=== PATIENT | male | born 1960 | race Caucasian/White ===

== ENCOUNTER 2022-07-11 18:25 | Emergency (ER) | payer OTHER, SELFPAY ==
[2022-07-11 18:39] VITALS: BP 125/78; PULSE 80; RESP 20; TEMP 35.6; O2SAT 96; BMI 40.9
--- NOTE | 2022-07-11 19:33 | CRLHL7_ITS ---
For Patients: As a result of the Century Cures Act, medical imaging exams and procedure reports are released immediately into your electronic medical record. You may view this report before your referring provider. If you have questions, please contact your health care provider. INDICATION: Fall. Pain in thigh. TECHNIQUE: Left femur, 4 views. COMPARISON: None. FINDINGS: Bones: Alignment is normal. No fractures or bone lesions. Joint spaces: Degenerative changes of the included hip and knee. Soft tissues: Unremarkable. IMPRESSION: No acute or significant findings. Dictated by José Miguel Ozuna MD @ 07/11/2022 8:01:13 PM (Electronically Signed)
--- NOTE | 2022-07-11 19:38 | ED.GENADULT ---
HPI - General Adult General Chief complaint: Extremity Pain/Injury, Lower Stated complaint: FELL AT WORK,LEFT UPPER THIGH INJURY Time Seen by Provider: 07/11/22 19:22 Source: patient Mode of arrival: ambulatory Limitations: no limitations History of Present Illness HPI narrative: Gogo 61-year-old male coming in today complaining of leg pain. States that yesterday he tripped and fell on his left hip and elbow. Was doing okay until today when he stumbled on a piece of rock and again fell on his right side. He stated that he was able to stand up and walk. He then got his car and drove awhile when he got out of his car he had a lot of leg pain. Pain is located in the anterior thigh. Does not radiate. Movement makes it worse, sitting very still makes it better. He denies hitting his head or losing consciousness. He denies any pain in his arms or his elbow where he fell. He also has a scrape on his knee which he states is not bothering him. He is able to walk, but it causes a lot of spasms of his thigh. He denies any headache, neck pain. He denies any recent illness. He states that the falls were because of tripping and not because he has been feeling dizzy or lightheaded his feet. Related Data Home Medications Medication Instructions Recorded Confirmed amlodipine 5 mg tablet 5 mg PO DAILY 07/11/22 07/11/22 ascorbic acid (vitamin C) 500 mg 500 mg PO DAILY 07/11/22 07/11/22 capsule aspirin 81 mg chewable tablet 81 mg PO DAILY 07/11/22 07/11/22 atenolol 100 mg tablet 50 mg PO DAILY 07/11/22 07/11/22 atorvastatin 40 mg tablet 40 mg PO DAILY 07/11/22 07/11/22 chlorthalidone 25 mg tablet 25 mg PO DAILY 07/11/22 07/11/22 cholecalciferol (vitamin D3) 25 25 mcg PO DAILY 07/11/22 07/11/22 mcg (1,000 unit) capsule fenofibrate 160 mg tablet 160 mg PO DAILY 07/11/22 07/11/22 fluconazole 150 mg tablet 150 mg PO DAILY 07/11/22 07/11/22 (Diflucan) insulin glargine 100 unit/mL (3 50 unit subcut HS 07/11/22 07/11/22 mL) subcutaneous pen losartan 100 mg tablet (Cozaar) 100 mg PO DAILY 07/11/22 07/11/22 metformin 1,000 mg tablet 1,000 mg PO BIDWMEAL 07/11/22 07/11/22 nystatin 100,000 unit/gram topical 1 applic topical TID 07/11/22 07/11/22 powder (Nyamy) semaglutide 1 mg/dose (2 mg/1.5 1 mg subcut QWEEK 07/11/22 07/11/22 mL) subcutaneous pen injector ([employer]) terbinafine 1 % topical gel ea topical 07/11/22 vitamin B complex 1 tab PO DAILY 07/11/22 07/11/22 zinc gluconate 50 mg tablet 50 mg PO DAILY 07/11/22 07/11/22 Allergies Allergy/AdvReac Type Severity Reaction Status Date / Time acetaminophen Allergy Verified 07/11/22 18:51 Review of Systems Status of ROS: Reports: 10 or more systems reviewed and unremarkable except as noted in History and below Exam Narrative: Exam Narrative: Well-nourished well-developed patient in no acute distress. Alert and oriented. Answers questions appropriately. Mood and affect are appropriate. Thoughts are goal oriented and rational. No tangential or magical thinking noted. Patient speaks in full sentences without needing to catch his breath. HEENT: Normocephalic atraumatic. Pupils are equally round reactive to light. Extraocular muscles are intact. Conjunctivae are moist without any icterus noted. Moist mucous membranes. Neck is soft without any lymphadenopathy or thyromegaly. No masses are appreciated. Cardiovascular: Heart is regular rate and rhythm S1 and S2 are present. Lungs: Clear to auscultation bilaterally. Abdomen: Soft and nontender nondistended with normal bowel sounds. Extremities: Bilateral lower extremities are without edema. Normal DP and PT pulses. Patient has superficial abrasions of the left lung and left elbow are. He has no tenderness to palpation of the elbow shoulder wrist on the left. He has no tenderness to palpation of the knee on the left. He has no tenderness with compression of the patella. He has full range of motion with flexion extension at the knee. However his left thigh is firm and contracted mm and appears to spasm with any movement. He does not seem to have any pain over the greater trochanter he may or the iliotibial band. He can bend at the hip without significant discomfort in the hip joint itself but it causes the thigh to spasm. The quadriceps does seem to be intact, there is no bulging or deficits noted. There is no obvious bruising noted of the thigh. Skin: Well perfused without any obvious rashes. Const: Vital Signs, click to edit/add: Vital Signs - 24 hr 07/11/22 18:39 Temperature 96.1 F L Pulse Rate [Right Pulse Oximeter] 80 Respiratory Rate 20 Blood Pressure [Le ft Upper Arm] 125/78 Pulse Oximetry 96 Oxygen Delivery Me thod Room Air Course Course Hospital Course: Did go ahead and x-ray the hip and femur a to make sure there are no fractures, x-ray was unremarkable. Patient received oral dose of oxycodone and Flexeril while here here which did seem to help. Vital Signs Vital signs: Initial Vital Signs Temperature 96.1 F L 07/11/22 18:39 Temperature Source Temporal Artery Scan 07/11/22 18:39 Pulse Rate 80 07/11/22 18:39 Respiratory Rate 20 07/11/22 18:39 Blood Pressure 125/78 07/11/22 18:39 Blood Pressure Mean 93 07/11/22 18:39 Blood Pressure Position Sitting 07/11/22 18:39 Pulse Oximetry 96 07/11/22 18:39 Oxygen Delivery Method 07/11/22 18:39 Vital Signs Temperature 96.1 F L 07/11/22 18:39 Pulse Rate 80 07/11/22 18:39 Respiratory Rate 20 07/11/22 18:39 Blood Pressure 125/78 07/11/22 18:39 Pulse Oximetry 96 07/11/22 18:39 Oxygen Delivery Method 07/11/22 18:39 Temperature 96.1 F L 07/11/22 18:39 Pulse Rate 80 07/11/22 18:39 Respiratory Rate 20 07/11/22 18:39 Blood Pressure 125/78 07/11/22 18:39 Pulse Oximetry 96 07/11/22 18:39 Oxygen Delivery Method 07/11/22 18:39 Medical Decision Making MDM Narrative Medical decision making narrative: 61-year-old male with a contusion to the left leg resulting in pain and muscle spasms. We discussed symptomatic treatment with ibuprofen, oxycodone as needed, heat and muscle relaxers. We discussed reasons to return to the ER. We discussed potential of constipation with the use of oxycodone. Patient and were agreeable had no other questions. Imaging Data Femur x-ray: Attestation: I have reviewed the pertinent imaging results. Radiologist's impression: FINDINGS: Bones: Alignment is normal. No fractures or bone lesions.? Joint spaces: Degenerative changes of the included hip and knee. Soft tissues: Unremarkable.? IMPRESSION: No acute or significant findings. Discharge Plan Discharge Clinical Impression: Muscle spasm, Contusion of left leg Patient Disposition: Home, Self-Care Condition: Stable Additional Instructions: Okay to use heat to left thigh as needed, do not apply heat directly to skin. Okay to use ibuprofen 600 mg every 8 hours as needed, always take with food. Okay to use oxycodone as needed for pain, it can cause constipation-recommend using a stool softener while using this medication. This medication can also cause dizziness and has an increased risk of fall, be careful when using. Lastly we will also be given a prescription for Flexeril, this is a muscle relaxer, use as needed/as directed. Prescriptions: No Action amlodipine 5 mg tablet 5 mg PO DAILY ascorbic acid (vitamin C) 500 mg capsule 500 mg PO DAILY aspirin 81 mg tablet,chewable 81 mg PO DAILY atenolol 100 mg tablet 50 mg PO DAILY atorvastatin 40 mg tablet 40 mg PO DAILY chlorthalidone 25 mg tablet 25 mg PO DAILY cholecalciferol (vitamin D3) 25 mcg (1,000 unit) capsule 25 mcg PO DAILY vitamin B complex [B Complex-Vitamin B12] 1 tab PO DAILY fenofibrate 160 mg tablet 160 mg PO DAILY fluconazole [Diflucan] 150 mg tablet 150 mg PO DAILY insulin glargine 100 unit/mL (3 mL) insulin pen 50 unit subcut HS losartan [Cozaar] 100 mg tablet 100 mg PO DAILY nystatin [Nyamyc] 100,000 unit/gram powder 1 applic topical TID metformin 1,000 mg tablet 1,000 mg PO BIDWMEAL Ozempic 1 mg/dose (2 mg/1.5 mL) pen injector 1 mg subcut QWEEK terbinafine 1 % gel topical zinc gluconate 50 mg tablet 50 mg PO DAILY Stand Alone Forms: [facility] Info Instructions
--- NOTE | 2022-07-11 20:20 | ED.NURSE ---
Open lacerations on left knee and left elbow cleaned with wound cleanser and bacitracin applied. Non adherent dressing and Tegaderm placed on top.
[2022-07-11] MEDS: CYCLOBENZAPRINE HCL 10 MG TABLET PO (21:07)
--- NOTE | 2022-07-11 21:11 | ED.NURSE ---
Pt requesting Oxycodone be removed from [facility] rx. [facility] called and Oxycodone was removed, Flexeril remains on [facility]. Primary nurse updated.
--- NOTE | 2022-07-11 21:12 | ED.NURSE ---
Patient declined Oxycodone because he has had stomach upset with this in the past. He also declined [facility] RX for this.
== END 2022-07-11 21:31 | disposition home or self-care (01) ==
PROVIDERS: Emergency Provider Family Medicine
DX: S80.12XA Contusion of left lower leg, initial encounter (principal); M62.838 Other muscle spasm
CPT/HCPCS: 73552; 99284; A9270